=== PATIENT | female | born 1985 | race African-American/Black ===

== ENCOUNTER 2016-09-25 05:05 | Inpatient (IN) ==
[2016-09-25] MEDS: LACTATED RINGERS 1,000 ML IV SCH ×2 (05:35→10:45)
[2016-09-25] MEDS ORDERED: BUTORPHANOL 2 MG/ML VIAL IV PRN (05:36)
[2016-09-25] MEDS ORDERED: ONDANSETRON 4 MG/2 ML VIAL IV PRN (05:36)
[2016-09-25] MEDS ORDERED: ACETAMINOPHEN 325 MG TABLET PO PRN (05:36)
[2016-09-25] MEDS ORDERED: OXYTOCIN/LR 20 UNIT/1,000 ML BAG IV SCH (06:00)
[2016-09-25 06:32] LABS: Basophils % 0.2 % (0.0-0.8); Eosinophils # 0.2 10*3/uL (0.0-0.87); Eosinophils % 1.6 % (0.00-10.9); Hematocrit 37.6 VOL% (35.7-47.0); Hemoglobin 12.8 GM/DL (12.0-16.0); Immature Granulocytes % 0.6 %; Immature Granulocytes Absolute 0.06 #; Lymphocytes # 2.6 10*3/uL (1.4-4.0); Lymphocytes % 24.9 % (21.3-54.2); Mean Corpuscular Hemoglobin 31 PG (27-34); Mean Corpuscular Volume 92.2 FL (87-102); Mean Platelet Volume 10.5 FL (9.6-12.0); Monocytes # 0.8 10*3/uL (0.11-0.8); Monocytes % 7.3 % (1.7-12.7); Neutrophils # 6.7 10*3/uL (1.4-7.4); Neutrophils % 65.4 % (38.7-73.9); Platelet Count 271 T/CUMM (130-400); Red Blood Count 4.08 MC/CUMM (3.8-5.5); Red Cell Distribution Width 13.3 % (9.3-17.3); White Blood Count 10.3 T/CUMM (4-12)
[2016-09-25] MEDS ORDERED: hydrOXYzine HCL 25 MG/1 ML VIAL IM PRN (08:02)
[2016-09-25] MEDS ORDERED: LACTATED RINGERS 250 ML IV PRN (08:02)
[2016-09-25] MEDS ORDERED: PROMETHAZINE 25 MG/1 ML VIAL IM ONE (08:02)
[2016-09-25] MEDS ORDERED: ePHEDrine 50 MG/ML AMP IV PRN (08:02)
[2016-09-25] MEDS ORDERED: diphenhydrAMINE 50 MG/1 ML VIAL IV PRN ×2 (08:02)
[2016-09-25] MEDS ORDERED: FAMOTIDINE 20 MG/2 ML VIAL IV ONE (08:30)
[2016-09-25] MEDS ORDERED: LACTATED RINGERS 1,000 ML IV ONE (08:30)
[2016-09-25] MEDS ORDERED: CITRIC ACID/SODIUM CITRATE 30 ML UDCUP PO ONE (08:30)
[2016-09-25] MEDS ORDERED: fentaNYL 2 MCG/ROPIV 0.2% EPID 150 ML EPIDURAL SCH (08:30)
--- NOTE | 2016-09-25 09:04 | OB/GYN History & Physical ---
History of Present Illness Chief complaint: Induction of labor at 39.0 wks History of present illness: Ms. Lea is a 31 year old female Patient is a 31-year-old 4 para 2011 that presented for induction of labor at 39.0 weeks gestation. She is 39 weeks gestation today. She receives care at [facility] with Rylie Soler CNM, CHASTITY-. She had a total of 12 visits and 5 ultrasounds. Her records are available, coherent, up- to-date, and have been reviewed. During the course of her , she initiated late care, she has been obese, has size greater than dates, had bacterial vaginosis treated with Flagyl, had candidiasis treated with Diflucan, had nausea and vomiting treated with Oscar, urinary tract infection treated with Macrobid, history of marijuana use earlier in the , had a maternal - medicine consult secondary to BPD disproportionate ultrasound and followed with Dr. Gracia. Labs: Blood type and RH O+, antibody screen negative, Rubella immune, HIV negative, HBsAG negative, GC negative, Chlamydia negative, Diabetic Screen 135, GBS negative, urine drug screen positive for cannabinoids, vitamin D 7.6 Home Medications Medication Instructions Recorded Confirmed Type Vit No.130/Iron/Folic 1 each PO DAILY 09/05/16 09/25/16 History [ Vitamins] Allergies Allergy/AdvReac Type Severity Reaction Status Date / Time No Known Allergies Allergy Verified 09/20/16 13:34 12 point system: reviewed and no additional remarkable complaints except as stated Medical,Surgical,& Family Hx - Medical History Medical History: noncontributory Reproductive: No history of: Ectopic , Complication - Surgical History Surgical History: noncontributory Reproductive Surgeries: Patient denies;: Section - Family History Family History: Reports;: Family Hypertension (mgf) Denies;: Family Anesthesia Reaction, Family Cancer, Family Diabetes, Family Heart Disease, Family Hematology, Family Psychiatric Problems, Family Stroke, Additional Family History - Social History Smoking Status: Never smoker Frequency of Alcohol Use: None Type of Drug Use: Marijuana Lives With:: Significant Other Functional capacity: independent ambulation 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 - Constitutional Vitals: Vital Signs Temp Pulse Resp BP 09/25/16 07:57 97.1 F L 81 20 137/80 General appearance: no acute distress - Antepartum / Post Antepartum Exam Cervix - Dilatation: 3 cm Effacement: 70% Station: -3 Rupture: Intact Presentation: Vertex Heart Rate: 130s with spontaneous accels, no decels noted, category 1 FHR tracing [place]: Every 2-3 minutes/40-50 seconds/mild Breast: bilateral: normal Abdomen obstetrics: Present: bowel sounds normal Vagina: Present: normal moisture (No lesions noted upon inspection) Uterus exam: Present: enlarged (Gravid, soft, nontender to touch, estimated weight 7.5-8 pounds) Anus/Rectum: Present: normal perianal skin - Neck Neck exam: Present: normal inspection - Respiratory Respiratory exam: Present: clear to auscultation bilaterally - Cardiovascular Cardiovascular exam: Present: regular rate and rhythm - GI/Abdominal GI/Abdominal exam: Present: normal bowel sounds - Extremities Exam Extremities exam: Present: normal inspection, normal capillary refill, full ROM - Back Exam Back exam: Present: normal inspection - Neurological Exam Neurological exam: Present: alert, oriented X3, normal gait - Psychiatric Psychiatric exam: Present: normal affect, normal mood - Skin Skin exam: Present: normal color, warm, dry Assessment and Plan (1) Vitamin D deficiency Status: Acute Current Visit: Yes (2) History of marijuana use Status: Acute Current Visit: Yes (3) Obesity Status: Acute Current Visit: Yes (4) Elective induction of labor planned Status: Acute Current Visit: Yes Results - Labs CBC & BMP: 09/25/16 06:12 Labs: Laboratory Tests 09/25/16 09/25/16 09/25/16 06:12 06:12 06:12 WBC 10.3 RBC 4.08 Hgb 12.8 Hct 37.6 MCV 92.2 MCH 31 MCHC 34.0 RDW 13.3 Plt Count 271 MPV 10.5 Neut % (Auto) 65.4 Lymph % (Auto) 24.9 [place] % (Auto) 7.3 Eos % (Auto) 1.6 Baso % (Auto) 0.2 Neut # (Auto) 6.7 Lymph # (Auto) 2.6 [place] # (Auto) 0.8 Eos # (Auto) 0.2 Baso # (Auto) 0.0 Immature Gran % 0.6 Nucleated RBC % 0.0 Immature Gran # 0.06 Nucleated RBCs # 0.00 Immature Plt Fraction 0.0 Treponema pallidum IgG Nonreactive Blood Type O POSITIVE Antibody Screen Negative
--- NOTE | 2016-09-25 12:39 | OB/GYN Progress Note ---
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 States feels some pressure , denies feeling any pain or contractions. O: Pitocin off presently secondary to maternal drop in blood pressure after epidural placed and deceleration after epidural placed- FHR recovered with spontaneous variability FHTs @ 140s, no decelerations noted UCs every 7/ 60-70 sec/ mild SVE 3-4 cm/ 80%/ -3 station BOW intact A: IUP @ 39.0 wks, H/O Polyhydraminos, H/O Reaction to Epidural, Category I FHR tracin P: Consulted Dr. Gregory- agreed with plan to perform possible AROM with needle with him being present. Restart pitocin @ 2 mu/min. Continue to monitor maternal and status. Reposition for comfort. 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
--- NOTE | 2016-09-25 14:05 | OB/GYN Progress Note ---
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 Denies pressure or leakage of fluid O: FHTs @ 130s with spontaneous variability, minimal accelerations noted UCs every 3-4 min/ 60 sec/ mild SVE 4 cm/ 80%/ -3. Pudental needle inserted through bag of mayer performed with DR. Gregory at bedside, no sudden gush of fluid noted, small amount of clear fluid noted on glove. Pitocin @ 8 mu/min Strip reviewed per Dr. Gregory A: IUP @ 39.0 wks, H/O Polyhydraminos, AROM with Pudental needle- small amount of clear fluid noted, Category I FHR tracing P: Continue with present management plan and pitocin induction per Dr. Gregory. Reposition for comfort. Questions answered to desired level of satisfaction. 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
[2016-09-25 14:37] LABS: Apearance,Urine CLEAR (Clear); Bilirubin,Urine Negative (Negative); Blood, Urine Negative (Negative); Glucose,Urine (UA) Negative (Negative); Ketones,Urine Negative (Negative); Mucus,Urine Occasional /LPF (Occasional); Nitrite,Urine Negative (Negative); Protein,Urine Negative; RBC,Urine 1 /HPF (0-4); Renal Epithelial Cells,Urine Occasional /HPF (<1); Squamous Epithelial Cell,Urine Occasional /HPF (0-10); Urine Color Straw (Yellow); Urine Specific Gravity 1.006 (1.001-1.035); Urine Urobilinogen < 2.0 EU/DL (0.2-1.0); WBC,Urine <1 /HPF (0-6)
[2016-09-25 14:47] LABS: Barbiturates Screen,Urine Negative (Negative); Benzodiazepines Screen,Urine Negative (Negative); Cannabinoid Screen,Urine Negative (Negative); Opiate Screen,Urine Negative (Negative); Phencyclidine Screen,Urine Negative (Negative)
[2016-09-25] MEDS ORDERED: METHYLERGONOVINE 0.2 MG/1 ML AMP ONE (19:20)
[2016-09-25] MEDS ORDERED: LIDOCAINE 1% 50 ML VIAL ONE (19:20)
[2016-09-25] MEDS ORDERED: CARBOPROST TROMETHAMINE 250 MCG/ML AMP IM ONE (19:20)
[2016-09-25] MEDS ORDERED: miSOPROStol 200 MCG TABLET ONE (19:20)
[2016-09-25] MEDS ORDERED: fentaNYL 100 MCG/2 ML VIAL ONE (19:24)
--- NOTE | 2016-09-25 19:43 | OB/GYN Progress Note ---
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 Moaning and crying with contractions O: FHTs @ 140s with spontaneous variability UCs every 2-3 min/ 30-60 sec/ mod SVE 8 cm/ 90%/ -2 station Pitocin @ 16 mu/min IUPC inserted easily without difficulty with clear flashback noted. FSE applied to bony prominence. A: IUP @ 39.0 wks, H/O Polyhydraminos, Category I FHR tracing, IUPC and FSE applied, Pitocin Induction P: Continue with present management plan. Consult anesthesia for evaluation of epidural. Reposition for comfort. Questions answered to desired level of satisfaction. 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
--- NOTE | 2016-09-25 20:22 | Operative Note ---
Date of procedure: 09/25/16 Pre-op diagnosis: IUP @ 39.0 wks, Polyhdraminos, Elective Induction Post-op diagnosis: other (Vacuum assisted vaginal delivery, tight nuchal cord, hand presentation with shoulder) Procedure: Patient received lithotomy position, complete, +3 station. Patient was draped and prepped. Patient indicated she could not push, became partially combative with pushing and refused to push at intervals indicating that she is "tired and too weak to push". Because of maternal fatigue, partially combative behavior, and cooperative behavior the patient, vacuum applied to head with -gentle pulls 2 with 1 contraction performed. Pop off 1 noted. At 1999, head delivered in PATRICIA position with tight nuchal cord 1 noted, unable to slip over the baby's head. Hand presenting with anterior shoulder. Hand reduced and posterior shoulder delivered, baby somersaulted through cord. delivered in usual fashion and secured. Mouth and nose bulb suctioned. Cord doubly clamped and cut. dried, with tactile stimulation provided, mother refused for the baby to be placed on her abdomen or chest and placed in radiant warmer and attended by nursery RN. At 2002, spontaneous delivery of placenta via Gus position, with 3 vessel cord noted, normal cord insertion, without any calcifications. Hemostasis maintained with fundal massage and Pitocin 20 units in 1000 cc of lactated Ringer. Perineum inspected with bilateral labial abrasions noted, stable, no bleeding noted, no repair needed. Male with Apgars pending, weighing 8 lbs. 8 oz. at 3853 grams. Mother and baby stable. Mother desires to bottle feed. Anesthesia: epidural Surgeon / Physician: Rylie Soler Estimated blood loss: other (200 cc) Specimens: other (Placenta to pathology secondary to polyhydramnios in ) Condition: stable Disposition: floor Results - Labs CBC & BMP: 09/25/16 06:12 Discharge Plan - Discharge Medications No Action Vit No.130/Iron/Folic [ Vitamins] 1 each PO DAILY - Follow Up or Referral - Forms/Instructions
[2016-09-25] MEDS ORDERED: MEASLES/MUMPS/RUBELLA VACCINE 0.5 ML VIAL SUBCUT ONE (20:26)
[2016-09-25] MEDS ORDERED: oxyCODONE/ACETAMINOPHEN 5-325 MG TABLET PO PRN (20:26)
[2016-09-25] MEDS ORDERED: BISACODYL 10 MG SUPP RECTAL PRN (20:26)
[2016-09-25] MEDS ORDERED: LANOLIN 50% CREAM 0.3 OZ TUBE TOP PRN (20:26)
[2016-09-25] MEDS ORDERED: OXYTOCIN/LR 20 UNIT/1,000 ML BAG IV ONE (20:26)
[2016-09-25] MEDS ORDERED: DIPH/TET/ACEL PERT BOOSTER VACCINE 0.5 ML VIAL IM ONE (20:26)
[2016-09-25] MEDS ORDERED: BENZOCAINE 20%/MENTHOL 0.5% SPRAY 56 GM CAN TOP PRN (20:26)
[2016-09-25] MEDS ORDERED: RHO(D) IMMUNE GLOBULIN 300 MCG SYRINGE IM ONE (20:26)
[2016-09-25] MEDS ORDERED: WITCH HAZEL PADS 100/JAR TOP PRN (20:26)
[2016-09-25] MEDS ORDERED: HYDROCORTISONE 2.5% RECTAL CREAM 30 GM TUBE TOP PRN (20:26)
[2016-09-25] MEDS: DOCUSATE SODIUM 100 MG CAPSULE PO SCH (22:33)
[2016-09-25] MEDS: FERROUS SULFATE 325 MG TABLET PO SCH (22:33)
[2016-09-25] MEDS: oxyCODONE/ACETAMINOPHEN 5-325 MG TABLET PO PRN (22:33)
[2016-09-26] MEDS: oxyCODONE/ACETAMINOPHEN 5-325 MG TABLET PO PRN ×2 (05:27→16:23)
[2016-09-26 05:28] LABS: Basophils % 0.2 % (0.0-0.8); Eosinophils # 0.1 10*3/uL (0.0-0.87); Eosinophils % 0.4 % (0.00-10.9); Hematocrit 34.2 VOL% (35.7-47.0); Hemoglobin 11.9 GM/DL (12.0-16.0); Immature Granulocytes % 0.6 %; Immature Granulocytes Absolute 0.11 #; Lymphocytes # 2.9 10*3/uL (1.4-4.0); Lymphocytes % 16.3 % (21.3-54.2); Mean Corpuscular HGB Conc 34.8 GM/DL (32-36); Mean Corpuscular Hemoglobin 32 PG (27-34); Mean Corpuscular Volume 91.7 FL (87-102); Monocytes # 1.3 10*3/uL (0.11-0.8); Monocytes % 7.3 % (1.7-12.7); Neutrophils # 13.3 10*3/uL (1.4-7.4); Neutrophils % 75.2 % (38.7-73.9); Platelet Count 235 T/CUMM (130-400); Red Blood Count 3.73 MC/CUMM (3.8-5.5); Red Cell Distribution Width 13.3 % (9.3-17.3); White Blood Count 17.6 T/CUMM (4-12)
[2016-09-26] MEDS: IBUPROFEN 800 MG TABLET PO PRN (05:28)
--- NOTE | 2016-09-26 09:02 | OB/GYN Progress Note ---
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 Request Depo-Provera for control. Denies any problems presently A: day 1, bottlefeeding, anemia, stable P: Continue routine care. Possible discharge home in the morning if stable. Exam CONTRACT TECHNICAL WRITER - Constitutional Vitals: Vital Signs Temp Pulse Resp BP Pulse Ox 09/26/16 07:35 98.1 F 105 H 20 132/73 98 09/26/16 05:40 20 09/26/16 03:00 20 09/26/16 02:00 20 09/26/16 01:10 98.4 F 108 H 20 143/70 97 09/26/16 00:10 98.3 F 111 H 20 140/70 96 09/25/16 23:10 98.0 F 113 H 20 150/71 99 09/25/16 22:40 98.0 F 106 H 20 136/79 98 09/25/16 22:10 97.8 F 109 H 20 138/82 98 09/25/16 20:20 98.1 F 09/25/16 19:34 98.1 F 09/25/16 16:00 97.6 F 110 H 20 127/78 99 09/25/16 12:00 98.3 F 91 H 18 127/65 100 General appearance: no acute distress - Antepartum / Post Post Exam Breast: bilateral: normal (Bra on, breasts soft and nontender) Abdomen obstetrics: Present: bowel sounds normal Vagina: Present: normal moisture (Intact, no edema) Uterus exam: Present: enlarged (Firm, midline, 3 fingerbreadths below the umbilicus) Anus/Rectum: Present: normal perianal skin - Head Head exam: Present: normal inspection - Eye Eye exam: Present: EOMI - ENT ENT exam: Present: normal exam, normal external ear exam - Neck Neck exam: Present: normal inspection - Respiratory Respiratory exam: Present: clear to auscultation bilaterally - Cardiovascular Cardiovascular exam: Present: regular rate and rhythm - GI/Abdominal GI/Abdominal exam: Present: normal bowel sounds - Extremities Exam Extremities exam: Present: normal inspection, normal capillary refill, full ROM - Back Exam Back exam: Present: normal inspection - Neurological Exam Neurological exam: Present: alert, oriented X3, normal gait - Psychiatric Psychiatric exam: Present: normal affect, normal mood - Skin Skin exam: Present: normal color, dry Results - Labs CBC & BMP: 09/26/16 04:28 Labs: Laboratory Tests 09/25/16 09/25/16 09/25/16 06:12 06:12 06:12 WBC 10.3 RBC 4.08 Hgb 12.8 Hct 37.6 MCV 92.2 MCH 31 MCHC 34.0 RDW 13.3 Plt Count 271 MPV 10.5 Neut % (Auto) 65.4 Lymph % (Auto) 24.9 [place] % (Auto) 7.3 Eos % (Auto) 1.6 Baso % (Auto) 0.2 Neut # (Auto) 6.7 Lymph # (Auto) 2.6 [place] # (Auto) 0.8 Eos # (Auto) 0.2 Baso # (Auto) 0.0 Immature Gran % 0.6 Nucleated RBC % 0.0 Immature Gran # 0.06 Nucleated RBCs # 0.00 Immature Plt Fraction 0.0 Urine Color Urine Appearance Urine pH Ur Specific [place] Urine Protein Urine Glucose (UA) Urine Ketones Urine Blood Urine Nitrate Urine Bilirubin Urine Urobilinogen Urine Leukocytes Urine RBC Urine WBC Ur Squamous Epith Cells Ur Renal Epithelial Cell Urine Mucus Ur Culture Indicated? Urine Opiates Screen Ur Barbiturates Screen Ur Phencyclidine Scrn U Amphetamine/Methamph U Benzodiazepines Scrn U Cocaine Metab Screen U Cannabinoids Screen Treponema pallidum IgG Nonreactive Blood Type O POSITIVE Antibody Screen Negative 09/25/16 09/25/16 09/26/16 10:15 10:15 04:28 WBC 17.6 H D RBC 3.73 L Hgb 11.9 L Hct 34.2 L MCV 91.7 MCH 32 MCHC 34.8 RDW 13.3 Plt Count 235 MPV 11.0 Neut % (Auto) 75.2 H Lymph % (Auto) 16.3 L [place] % (Auto) 7.3 Eos % (Auto) 0.4 Baso % (Auto) 0.2 Neut # (Auto) 13.3 H Lymph # (Auto) 2.9 [place] # (Auto) 1.3 H Eos # (Auto) 0.1 Baso # (Auto) 0.0 Immature Gran % 0.6 Nucleated RBC % 0.0 Immature Gran # 0.11 Nucleated RBCs # 0.00 Immature Plt Fraction 0.0 Urine Color Straw Urine Appearance Clear Urine pH 6.0 Ur Specific [place] 1.006 Urine Protein Negative Urine Glucose (UA) Negative Urine Ketones Negative Urine Blood Negative Urine Nitrate Negative Urine Bilirubin Negative Urine Urobilinogen < 2.0 H Urine Leukocytes Negative Urine RBC 1 Urine WBC <1 Ur Squamous Epith Cells Occasional Ur Renal Epithelial Cell Occasional Urine Mucus Occasional Ur Culture Indicated? Not indicated Urine Opiates Screen Negative Ur Barbiturates Screen Negative Ur Phencyclidine Scrn Negative U Amphetamine/Methamph Negative U Benzodiazepines Scrn Negative U Cocaine Metab Screen Negative U Cannabinoids Screen Negative Treponema pallidum IgG Blood Type Antibody Screen
[2016-09-26] MEDS: DOCUSATE SODIUM 100 MG CAPSULE PO SCH ×2 (09:08→20:03)
[2016-09-26] MEDS: FERROUS SULFATE 325 MG TABLET PO SCH ×3 (09:08→20:03)
[2016-09-27] MEDS: DOCUSATE SODIUM 100 MG CAPSULE PO SCH (08:52)
[2016-09-27] MEDS: FERROUS SULFATE 325 MG TABLET PO SCH (08:52)
[2016-09-27] MEDS: IBUPROFEN 800 MG TABLET PO PRN (08:54)
[2016-09-27 11:06] VITALS: BP 149/81
--- NOTE | 2016-09-27 11:20 | Pathology Report from [facility] ---
[facility] ACCESSION # : [id number] PATIENT NAME : Cheyanne Lea ORDERING DR : DAMON US DO CLINICAL HX: Polyhydramnios IUP @ 39 weeks gestation POST-OP DX: Same SPECIMEN INFO: Intact placenta GROSS DESCRIPTION: Received fresh labeled with the patients name and consists of a 582 gram placenta measuring 19.4 x 18.6 x 2.7 cm. membranes are pink -coates translucent with clotted blood present. The umbilical cord is marginally inserted, contains three vessels and is 23.8 cm. surface is blue-barrera. The maternal surface is hemorrhagic with clotted blood with intact cotyledons and scattered areas of fibrin and calcifications noted. No gross abnormalities on sectioning. Sections submitted: A membranes and cord, B and maternal surfaces. DIAGNOSIS FOR CHEYANNE LEA: PLACENTA, MEMBRANES, UMBILICAL CORD: Focal placental infarction with dystrophic calcification, fibrin clot. Tri-vessel umbilical cord marginally inserted. Membranes with focal chronic inflammation and attached blood. COLLECTED DATE: 09/26/2016 [facility] REPORT DATE: 09/27/2016 ELECTRONICALLY SIGNED BY: Ann Bettencourt M.D. 09/27/2016 - 10:05:28 NAHEED
--- NOTE | 2016-09-27 11:59 | Discharge Summary ---
Hospital Course - Hospital Course Hospital Course: Patient is a 2 now para 3013 that presented at 39 weeks gestation for induction of labor. Labor progressed under an epidural with the patient to deliver an 8 lbs. 8 oz. male with Apgars 7 and 8 with an intact perineum with a vacuum assist. She is bottlefeeding without difficulty. She does have anemia and she is being treated with iron tablets. She is being discharged home today. She will follow with me in 2 weeks. Diagnosis - Discharge Diagnosis (1) Vitamin D deficiency Status: Acute (2) History of marijuana use Status: Acute (3) Obesity Status: Acute (4) Elective induction of labor planned Status: Resolved (5) Status post vacuum-assisted vaginal delivery Status: Resolved Specialty Discharge - Follow Up or Referrals Follow up with: Rylie Soler CFNP [Advanced Practice Nurse] - 10/10/16 10:40 am Discharge Plan - Discharge Data Disposition: Disch To Home/Self Care Condition at Discharge: Stable Discharge Diet: advance to your usual diet Hygiene: may shower Weight Bearing at Discharge: full weight bearing Driving: not for (2 weeks) Contact your physician if you experience:: fever over 101, Difficulty voiding, Redness or swelling, Nausea/Vomiting, Shortness of breath, Bleeding, pain uncontrolled by pain medications - Discharge Medications New Ibuprofen Tab [Motrin Tab] 800 mg PO Q8H PRN tablet PRN Reason: Pain Moderate (4-7) Ibuprofen 800 mg PO Q8HR #90 tablet Ferrous Sulfate Tab [Feosol Original Tab] 325 mg PO DAILY #30 tablet No Action Vit No.130/Iron/Folic [ Vitamins] 1 each PO DAILY - Follow Up or Referral Follow Up: Rylie Soler CFNP [Advanced Practice Nurse] - 10/10/16 10:40 am - Forms/Instructions Instructions: Perineal Care (DC), Vaginal Delivery (DC), Bleeding (DC) Exam - Constitutional Vitals: Period Temp Pulse Resp BP Sys/German Pulse Ox Last 24 Hr 97 F-98.6 F 87-97 18-20 113-159/54-90 97-98 General appearance: over weight - Head Head exam: Present: normal inspection - Eye Eye exam: Present: EOMI - ENT ENT exam: Present: normal exam, normal external ear exam - Neck Neck exam: Present: normal inspection - Respiratory Respiratory exam: Present: clear to auscultation bilaterally - Cardiovascular Cardiovascular exam: Present: regular rate and rhythm - GI/Abdominal GI/Abdominal exam: Present: normal bowel sounds - Extremities Exam Extremities exam: Present: normal inspection, normal capillary refill, full ROM - Back Exam Back exam: Present: normal inspection - Neurological Exam Neurological exam: Present: alert, oriented X3, normal gait - Psychiatric Psychiatric exam: Present: normal affect, normal mood - Skin Skin exam: Present: normal color, warm, dry Discharge Results Procedures and tests throughout hospitalization: Laboratory Tests 09/25/16 09/25/16 09/25/16 06:12 06:12 06:12 WBC 10.3 RBC 4.08 Hgb 12.8 Hct 37.6 MCV 92.2 MCH 31 MCHC 34.0 RDW 13.3 Plt Count 271 MPV 10.5 Neut % (Auto) 65.4 Lymph % (Auto) 24.9 [place] % (Auto) 7.3 Eos % (Auto) 1.6 Baso % (Auto) 0.2 Neut # (Auto) 6.7 Lymph # (Auto) 2.6 [place] # (Auto) 0.8 Eos # (Auto) 0.2 Baso # (Auto) 0.0 Immature Gran % 0.6 Nucleated RBC % 0.0 Immature Gran # 0.06 Nucleated RBCs # 0.00 Immature Plt Fraction 0.0 Urine Color Urine Appearance Urine pH Ur Specific [place] Urine Protein Urine Glucose (UA) Urine Ketones Urine Blood Urine Nitrate Urine Bilirubin Urine Urobilinogen Urine Leukocytes Urine RBC Urine WBC Ur Squamous Epith Cells Ur Renal Epithelial Cell Urine Mucus Ur Culture Indicated? Urine Opiates Screen Ur Barbiturates Screen Ur Phencyclidine Scrn U Amphetamine/Methamph U Benzodiazepines Scrn U Cocaine Metab Screen U Cannabinoids Screen Treponema pallidum IgG Nonreactive Blood Type O POSITIVE Antibody Screen Negative 09/25/16 09/25/16 09/26/16 10:15 10:15 04:28 WBC 17.6 H D RBC 3.73 L Hgb 11.9 L Hct 34.2 L MCV 91.7 MCH 32 MCHC 34.8 RDW 13.3 Plt Count 235 MPV 11.0 Neut % (Auto) 75.2 H Lymph % (Auto) 16.3 L [place] % (Auto) 7.3 Eos % (Auto) 0.4 Baso % (Auto) 0.2 Neut # (Auto) 13.3 H Lymph # (Auto) 2.9 [place] # (Auto) 1.3 H Eos # (Auto) 0.1 Baso # (Auto) 0.0 Immature Gran % 0.6 Nucleated RBC % 0.0 Immature Gran # 0.11 Nucleated RBCs # 0.00 Immature Plt Fraction 0.0 Urine Color Straw Urine Appearance Clear Urine pH 6.0 Ur Specific [place] 1.006 Urine Protein Negative Urine Glucose (UA) Negative Urine Ketones Negative Urine Blood Negative Urine Nitrate Negative Urine Bilirubin Negative Urine Urobilinogen < 2.0 H Urine Leukocytes Negative Urine RBC 1 Urine WBC <1 Ur Squamous Epith Cells Occasional Ur Renal Epithelial Cell Occasional Urine Mucus Occasional Ur Culture Indicated? Not indicated Urine Opiates Screen Negative Ur Barbiturates Screen Negative Ur Phencyclidine Scrn Negative U Amphetamine/Methamph Negative U Benzodiazepines Scrn Negative U Cocaine Metab Screen Negative U Cannabinoids Screen Negative Treponema pallidum IgG Blood Type Antibody Screen DS: Provider Date of admission: 09/25/16 05:36 Primary care physician: . No PCP Attending physician on admission: Maverick Gregory DO Consults: 09/25/16 05:36 Consult to Anesthesiology [CONS] Routine Consulting Provider: Reason for Anesthesiology: Epidural Consult Comment: Epidural for pain managment 09/25/16 20:27 Consult to Softball Umpire [CONS] Routine Consult Softball Umpire: Breast Feeding Discharging clinician: DENG Benoit
== END 2016-09-27 12:40 | disposition home or self-care (01) | DRG 775 ==
LOC: N.LDOUT 05:05 → N.LD 05:06 → N.OB 22:21
PROVIDERS: ADMIT Obstetrics & Gynecology; ATTEND Obstetrics & Gynecology